=== PATIENT | male | born 1965 | race Caucasian/White ===

== ENCOUNTER → 2021-06-09 | Day surgery (SDC) | payer OTHER ==
[~2021-06-09] VITALS: Ht 182.9 cm; Wt 98.9 kg
[~2021-06-09] MED LIST: ASPIRIN81 MG PO; HYDROCHLOROTHIA25 MG PO; LIPITOR TAB 1010 MG PO
== END | disposition home or self-care (01) ==
LOC: OR 06:11
DX: D12.0 Benign neoplasm of cecum (principal); D12.3 Benign neoplasm of transverse colon; K57.30 Diverticulosis of large intestine without perforation or abscess without bleeding; K64.1 Second degree hemorrhoids; K92.1 Melena; K82.4 Cholesterolosis of gallbladder; I10 Essential (primary) hypertension; E78.00 Pure hypercholesterolemia, unspecified; E78.5 Hyperlipidemia, unspecified; E66.3 Overweight; F17.210 Nicotine dependence, cigarettes, uncomplicated; Z79.82 Long term (current) use of aspirin; Z79.899 Other long term (current) drug therapy; Z20.822 Contact with and (suspected) exposure to COVID-19
CPT/HCPCS: J2704; J7040

== ENCOUNTER → 2021-06-23 | Outpatient (CLI) | payer OTHER | LOC: US 06-08 09:30 | DX: R10.11 Right upper quadrant pain (principal); K76.89 Other specified diseases of liver | CPT/HCPCS: 76705 ==